=== PATIENT | male | born 1995 | race Caucasian/White ===

== ENCOUNTER 2018-06-04 11:07 | Emergency (ER) | payer SELFPAY ==
[2018-06-04 11:34] VITALS: BMI 23.4
--- NOTE | 2018-06-04 11:48 | PDOC ---
History of Present Illness - General History Source: Patient Exam Limitations: No Limitations - History of Present Illness Initial Comments: 06/04/18 13:04 The patient is a 23 year old male, with no significant past medical history, who presents to the emergency department with nausea, vomiting, diarrhea, since last night. The patient reports he ate steak that he left in his refrigerator for several days, and he vomited shortly after. The patient reports he has had several episodes of vomiting, nonbloody as well as watery diarrhea. The patient notes he is also having diarrhea, nonbloody and nontarry. The patient reports he is not able to keep down anything by mouth. pt endorses intermittent crampy pain with vomiting but non currently. He denies any recent fevers, chills, headache or dizziness. He denies any recent constipation. He denies any recent chest pain or shortness of breath. He denies any recent dysuria, frequency, urgency or hematuria. He denies any recent travel He denies sick contact Allergies: NKA <Evangelina Magallon - Last Filed: 06/04/18 13:48> <Fabricio Madrigal - Last Filed: 06/05/18 10:16> - General Chief Complaint: Vomiting/Diarrhea Stated Complaint: VOMITING/DIARRHEA Time Seen by Provider: 06/04/18 11:40 Past History <Evangelina Magallon - Last Filed: 06/04/18 13:48> - Past Medical History COPD: No - Immunization History Immunization Up to Date: Yes - Suicide/Smoking/Psychosocial Hx Smoking History: Never smoked Hx Alcohol Use: No Drug/Substance Use Hx: No <Fabricio Madrigal - Last Filed: 06/05/18 10:16> - Past Medical History Allergies/Adverse Reactions: Allergies Allergy/AdvReac Type Severity Reaction Status Date / Time No Known Allergies Allergy Verified 06/04/18 11:19 Home Medications: Ambulatory Orders Famotidine [Pepcid] 20 mg PO BID PRN #20 tablet 06/04/18 Mag Hydrox/Aluminum Hyd/Simeth [Maalox Advanced Suspension] 30 ml PO Q6H PRN #1 oral.susp 06/04/18 Ondansetron HCl [Zofran] 4 mg PO Q8H PRN #12 tablet 06/04/18 Ondansetron [Zofran -] 4 mg PO TID PRN #14 tablet 06/04/18 Review of Systems - Review of Systems Able to Perform ROS?: Yes Comments:: 06/04/18 12:45 Constitutional - no reported Fever, Chills, HEENT: no reported vision changes, sore throat Respiratory: no reported cough, sob, hemoptysis Cardiac: no reported chest pain, palpitations, light headedness, leg swelling Abd/GI: +crampy abd pain, nausea, vomiting,diarrhea no reported blood per rectum , melena, : no reported dysuria, frequency, discharge Musculskelatal - no reported back pain, joint swelling skin - no reported bruising, erythema, rash neurological: no reported headache, numbness, focal weakness, tingling, ataxia, hematologic: no reported easy bruising, easy bleeding <Fabricio Mardigal - Last Filed: 06/05/18 10:16> *Physical Exam - Vital Signs Last Vital Signs Temp Pulse Resp BP Pulse Ox 98.2 F 91 H 17 102/62 97 06/04/18 11:20 06/04/18 11:20 06/04/18 11:20 06/04/18 11:20 06/04/18 11:20 <Dizenzo,Evangelina - Last Filed: 06/04/18 13:48> - Vital Signs Last Vital Signs Temp Pulse Resp BP Pulse Ox 98.2 F 91 H 17 102/62 97 06/04/18 11:20 06/04/18 11:20 06/04/18 11:20 06/04/18 11:20 06/04/18 11:20 - Physical Exam Comments: 06/04/18 12:45 GENERAL: The patient is awake, alert, and fully oriented, Nontoxic - in no acute distress. HEAD: Normocephalic, atraumatic. EYES: extraocular movements intact, sclera anicteric, conjunctiva clear. ENT: Normal voice, Moist mucous membranes. NECK: Normal range of motion, supple LUNGS: Breath sounds equal, clear to auscultation bilaterally. No wheezes, no rhonchi, no rales. HEART: Regular rate and rhythm, normal S1 and S2 without murmur, rub or gallop. ABDOMEN: Soft, nontender, normoactive bowel sounds. No guarding, no rebound. . No CVA tenderness EXTREMITIES: Normal range of motion, NEUROLOGICAL: No facial assymetry, Normal speech, moving all 4 ext spontaneoulsy and symemtrically PSYCH: Normal mood, normal affect. SKIN: Warm, Dry, normal turgor, <Fabricio Madrigal - Last Filed: 06/05/18 10:16> Moderate Sedation - Procedure Monitoring Vital Signs: Procedure Monitoring Vital Signs Temperature 98.2 F 06/04/18 11:20 Pulse Rate 91 H 06/04/18 11:20 Respiratory Rate 17 06/04/18 11:20 Blood Pressure 102/62 06/04/18 11:20 O2 Sat by Pulse Oximetry (%) 97 06/04/18 11:20 <Dizenzo,Evangelina - Last Filed: 06/04/18 13:48> - Procedure Monitoring Vital Signs: Procedure Monitoring Vital Signs Temperature 98.2 F 06/04/18 11:20 Pulse Rate 91 H 06/04/18 11:20 Respiratory Rate 17 06/04/18 11:20 Blood Pressure 102/62 06/04/18 11:20 O2 Sat by Pulse Oximetry (%) 97 06/04/18 11:20 <Fabricio Madrigal - Last Filed: 06/05/18 10:16> ED Treatment Course - LABORATORY CBC & Chemistry Diagram: 06/04/18 12:21 06/04/18 12:21 - ADDITIONAL ORDERS Additional order review: Laboratory Results 06/04/18 12:21 Sodium 138 Potassium 4.0 Chloride 101 Carbon Dioxide 27 Anion Gap 10 BUN 19 H Creatinine 1.1 Creat Clearance w eGFR > 60 Random Glucose 107 H Calcium 9.5 Magnesium 2.0 Total Bilirubin 1.4 H AST 17 ALT 18 Alkaline Phosphatase 63 Total Protein 8.2 Albumin 5.0 - Medications Given in the ED: ED Medications Discontinued Medications Generic Name Dose Route Start Last Admin Trade Name Freq PRN Reason Stop Dose Admin Sodium Chloride 1,000 mls @ 1,000 mls/hr 06/04/18 11:53 06/04/18 12:15 Normal Saline - IV 06/04/18 12:52 1,000 mls/hr .Q1H ONE Administration Ondansetron HCl 4 mg 06/04/18 11:53 06/04/18 12:15 Zofran Injection IVPB 06/04/18 11:54 4 mg ONCE ONE Administration <Dizenzo,Evangelina - Last Filed: 06/04/18 13:48> - LABORATORY CBC & Chemistry Diagram: 06/04/18 12:21 06/04/18 12:21 <Fabricio Madrigal - Last Filed: 06/05/18 10:16> Medical Decision Making - Medical Decision Making 06/04/18 11:51 23y M no pmhx presenst with n/v/d since last night. started after he ate some steak renay thas been sittin gin his fridge vomiting x 3 this morning associated with watery non bloody stool since tnight, no hematemes,s unable to tolerate anything by mouth. no known sick contacts or recent travel. no abd surgeries suspect gastroenteritis no foacl abd tenderness to suggest focal peritonitis will treat with fluids, zofran will ck absic labs, ua will reassess A portion of this note was documented by scribe services under my direction. I have reviewed the details of the note, within reason, and agree with the documentation with the following case summary and management plan written by me 06/04/18 17:10 pts labs reviewed noted for leukocytosis pt feeling better clinically, but has occaional R abd pain, awaiting gb US to r/ o cholecystitis tolerating oral intake 06/04/18 17:17 GBUS negative toleraitng oral intake 06/04/18 17:26 pts still has some pain, now complaining of RLQ pain will obtain CT abdomen to r/o appendicitis signed out to evening team to fu with CT <Fabricio Madrigal - Last Filed: 06/05/18 10:16> *DC/Admit/Observation/Transfer - Attestations Scribe Attestion: 06/04/18 13:48 Documentation prepared by Evangelina Magallon, acting as medical safety director for Fabricio Madrigal MD. <Evangelina Magallon - Last Filed: 06/04/18 13:48> <Fabricio Madrigal - Last Filed: 06/05/18 10:16> Diagnosis at time of Disposition: Gastroenteritis - Discharge Dispostion Disposition: HOME Condition at time of disposition: Improved - Prescriptions Prescriptions: Famotidine [Pepcid] 20 mg PO BID PRN #20 tablet PRN Reason: Abdominal Pain Mag Hydrox/Aluminum Hyd/Simeth [Maalox Advanced Suspension] 30 ml PO Q6H PRN #1 oral.susp PRN Reason: Abdominal Pain Ondansetron [Zofran -] 4 mg PO TID PRN #14 tablet PRN Reason: Nausea Ondansetron HCl [Zofran] 4 mg PO Q8H PRN #12 tablet PRN Reason: Nausea - Referrals Referrals: [facility] [place] [facility] [place] [Provider Group] - Patient Instructions Printed Discharge Instructions: DI for Viral Gastroenteritis -- Adult, DI for Abdominal Pain-Adult Additional Instructions: Return to the emergency department immediately with ANY new, persistent or worsening symptoms including worsening abdominal pain, fevers, inability to tolerate oral intake, chest pain, shortness of breath or any other concerns. Clear liquids only for the next 6 hours.. After that if you have had no further vomiting you may have bananas, rice, applesauce, or toast. If no further vomiting for another 8 hours you may have regular food. If you vomit again then nothing to eat or drink for 2 hours. Take one of the ondansatrone as needed for nausea or vomiting then start back with the clear liquids. Return to the emergency department immediately with ANY new, persistent or worsening symptoms. You MUST call and follow up with your doctor tomorrow if not better. Your emergency department visit is not complete without a followup with your doctor for reevaluation. Please make sure your doctor reviews the results of your emergency evaluation Please call back tomorrow for the official read of the CT scan of the abdomen and pelvis at [phone]. Print Language: ZAMBIAN - Post Discharge Activity Forms/Work/School Notes: Back to Work
[2018-06-04] MEDS ORDERED: SODIUM CHLORIDE 1,000 ML IV ONE ×2 (11:53→13:48)
[2018-06-04] MEDS ORDERED: ONDANSETRON 4 MG/2 ML VIAL IVPB ONE (11:53)
[2018-06-04] MEDS ORDERED: ONDANSETRON 4 MG/2 ML VIAL ONE (12:07)
[2018-06-04 12:55] LABS: ALK PHOS 63 U/L (45-117); ANION GAP 10 MMOL/L (8-16); BILIRUBIN,TOTAL 1.4 mg/dL (0.2-1); BLOOD UREA NITROGEN 19 mg/dL (7-18); CALCIUM 9.5 mg/dL (8.5-10.1); CHLORIDE 101 mmol/L (98-107); CO2 27 mmol/L (21-32); CREATININE 1.1 mg/dL (0.55-1.3); GLUCOSE,RANDOM 107 mg/dL (74-106); SGOT/AST 17 U/L (15-37); SGPT/ALT 18 U/L (13-61); SODIUM 138 mmol/L (136-145); TOT PROT 8.2 g/dl (6.4-8.2)
[2018-06-04 13:13] LABS: BASO % 0.2 % (0-2.0); EOS % 0.6 % (0-4.5); HEMATOCRIT 49.7 % (35.4-49); HEMOGLOBIN 17.2 GM/dL (11.7-16.9); LYMPH % 4.6 % (8-40); MCH 30.8 pg (25.7-33.7); MCHC 34.6 g/dl (32.0-35.9); MEAN CELL VOLUME 89.3 fl (80-96); MEAN PLT VOLUME 8.5 fl (7.5-11.1); NEUT % 88.6 % (42.8-82.8); PLATELET COUNT 290 K/MM3 (134-434); RBC 5.57 M/mm3 (4.00-5.60); RDW 14.2 % (11.9-15.9); WHITE BLOOD COUNT 13.2 K/mm3 (4.0-10.0)
[2018-06-04 14:15] LABS: URINE APPEARANCE CLEAR; URINE BILIRUBIN NEGATIVE (<2.0 mg/dL); URINE COLOR YELLOW; URINE GLUCOSE (UA) NEGATIVE (NEGATIVE); URINE KETONE 2+ (NEGATIVE); URINE LEUK ESTERASE NEGATIVE (NEGATIVE); URINE NITRITE NEGATIVE (NEGATIVE); URINE PROTEIN NEGATIVE (NEGATIVE); URINE UROBILINOGEN NEGATIVE mg/dL (0.2-1.0)
--- NOTE | 2018-06-04 20:20 | PDOC ---
*Physical Exam - Vital Signs Last Vital Signs Temp Pulse Resp BP Pulse Ox 98 F 82 20 110/65 100 06/04/18 17:18 06/04/18 17:18 06/04/18 17:18 06/04/18 17:18 06/04/18 17:18 ED Treatment Course - LABORATORY CBC & Chemistry Diagram: 06/04/18 12:21 06/04/18 12:21 - ADDITIONAL ORDERS Additional order review: Laboratory Results 06/04/18 06/04/18 14:05 12:21 Sodium 138 Potassium 4.0 Chloride 101 Carbon Dioxide 27 Anion Gap 10 BUN 19 H Creatinine 1.1 Creat Clearance w eGFR > 60 Random Glucose 107 H Calcium 9.5 Magnesium 2.0 Total Bilirubin 1.4 H AST 17 ALT 18 Alkaline Phosphatase 63 Total Protein 8.2 Albumin 5.0 Urine Color Yellow Urine Appearance Clear Urine pH 6.0 Ur Specific [place] 1.028 Urine Protein Negative Urine Glucose (UA) Negative Urine Ketones 2+ H Urine Blood Negative Urine Nitrite Negative Urine Bilirubin Negative Urine Urobilinogen Negative Ur Leukocyte Esterase Negative 06/04/18 12:21 RBC 5.57 MCV 89.3 MCHC 34.6 RDW 14.2 MPV 8.5 Neutrophils % 88.6 H Lymphocytes % 4.6 L Monocytes % 6.0 Eosinophils % 0.6 Basophils % 0.2 - Medications Given in the ED: ED Medications Discontinued Medications Generic Name Dose Route Start Last Admin Trade Name Freq PRN Reason Stop Dose Admin Sodium Chloride 1,000 mls @ 1,000 mls/hr 06/04/18 11:53 06/04/18 12:15 Normal Saline - IV 06/04/18 12:52 1,000 mls/hr .Q1H ONE Administration Sodium Chloride 1,000 mls @ 1,000 mls/hr 06/04/18 13:48 06/04/18 13:30 Normal Saline - IV 06/04/18 14:47 1,000 mls/hr .Q1H ONE Administration Ondansetron HCl 4 mg 06/04/18 11:53 06/04/18 12:15 Zofran Injection IVPB 06/04/18 11:54 4 mg ONCE ONE Administration Medical Decision Making - Medical Decision Making 06/04/18 20:16 Sign-out received from outgoing Emergency Physician Dr. Madrigal Pt interviewed and examined Ancillary studies reviewed Case discussed in detail with oncoming Emergency Physician including history, physical exam and ancillary studies. I had re-examined the patient. No abdominal pain. CT scan of the abdomen and pelvis (after discussing with radiologist on imaging manufacturing controls engineer), unlikely to be appendicitis. Given no abdominal pain, and pt feels better. I suspect gastroenteritis. Will d/c home with supportive care. I discussed the physical exam findings, ancillary test results and final diagnoses with the patient. I answered all of the patient's questions. The patient was satisfied with the care received and felt comfortable with the discharge plan and treatment plan. The patient will call their primary care physician within 24 hours to arrange follow-up and will return to the Emergency Department with any new, persistant or worsening symptoms. *DC/Admit/Observation/Transfer Diagnosis at time of Disposition: Gastroenteritis - Discharge Dispostion Disposition: HOME Condition at time of disposition: Improved Decision to Admit order: No - Prescriptions Prescriptions: Famotidine [Pepcid] 20 mg PO BID PRN #20 tablet PRN Reason: Abdominal Pain Mag Hydrox/Aluminum Hyd/Simeth [Maalox Advanced Suspension] 30 ml PO Q6H PRN #1 oral.susp PRN Reason: Abdominal Pain Ondansetron [Zofran -] 4 mg PO TID PRN #14 tablet PRN Reason: Nausea Ondansetron HCl [Zofran] 4 mg PO Q8H PRN #12 tablet PRN Reason: Nausea - Referrals [place]: [facility] [place] [facility] [place] [Provider Group] - Patient Instructions Printed Discharge Instructions: DI for Viral Gastroenteritis -- Adult, DI for Abdominal Pain-Adult Additional Instructions: Return to the emergency department immediately with ANY new, persistent or worsening symptoms including worsening abdominal pain, fevers, inability to tolerate oral intake, chest pain, shortness of breath or any other concerns. Clear liquids only for the next 6 hours.. After that if you have had no further vomiting you may have bananas, rice, applesauce, or toast. If no further vomiting for another 8 hours you may have regular food. If you vomit again then nothing to eat or drink for 2 hours. Take one of the ondansatrone as needed for nausea or vomiting then start back with the clear liquids. Return to the emergency department immediately with ANY new, persistent or worsening symptoms. You MUST call and follow up with your doctor tomorrow if not better. Your emergency department visit is not complete without a followup with your doctor for reevaluation. Please make sure your doctor reviews the results of your emergency evaluation Please call back tomorrow for the official read of the CT scan of the abdomen and pelvis at [phone]. Print Language: ITALIAN - Post Discharge Activity Forms/Work/School Notes: Back to Work
[2018-06-04 20:33] VITALS: BP 127/70; PULSE 87; TEMP 98.1
== END 2018-06-04 17:20 | disposition home or self-care (01) ==
LOC: JER 11:07
PROC: 3E0337Z Introduction of Electrolytic and Water Balance Substance into Peripheral Vein, Percutaneous Approach (ICD-10-PCS; principal; 2018-06-04)
PROC: 3E033GC Introduction of Other Therapeutic Substance into Peripheral Vein, Percutaneous Approach (ICD-10-PCS; 2018-06-04)
DX: K52.9 Noninfective gastroenteritis and colitis, unspecified (principal)
CPT/HCPCS: 36415; 74177-TC; 76705-TC; 80053; 81003; 83735; 85025; 99283-25; J7030

== ENCOUNTER 2019-07-02 11:42 | Emergency (ER) | payer OTHER ==
[2019-07-02 11:46] VITALS: BP 108/68; PULSE 75; TEMP 97.3; BMI 23.4
[2019-07-02] MEDS ORDERED: SODIUM CHLORIDE 1,000 ML IV STA (12:01)
[2019-07-02] MEDS ORDERED: ACETAMINOPHEN 1000 MG/100 ML VIAL (NON FORMULARY) IVPB ONE (12:01)
--- NOTE | 2019-07-02 12:05 | PDOC ---
History of Present Illness - General History Source: Patient - History of Present Illness Timing/Duration: reports: constant Quality: reports: moderate Abdominal Pain Onset Location: reports: RLQ <[place] - Last Filed: 07/02/19 14:06> <Fabricio Madrigal - Last Filed: 07/03/19 09:43> - General Chief Complaint: Pain Stated Complaint: ABDOMINAL PAIN Time Seen by Provider: 07/02/19 11:53 Past History - Past Medical History COPD: No - Immunization History Immunization Up to Date: Yes - Psycho Social/Smoking Cessation Hx Smoking History: Never smoked Hx Alcohol Use: No Drug/Substance Use Hx: No <Brittny Stewart - Last Filed: 07/02/19 14:06> <Fabricio Madrigal - Last Filed: 07/03/19 09:43> - Past Medical History Allergies/Adverse Reactions: Allergies Allergy/AdvReac Type Severity Reaction Status Date / Time No Known Allergies Allergy Verified 07/02/19 11:46 Home Medications: Ambulatory Orders Famotidine [Pepcid] 20 mg PO BID PRN #20 tablet 06/04/18 Mag Hydrox/Aluminum Hyd/Simeth [Maalox Advanced Suspension] 30 ml PO Q6H PRN #1 oral.susp 06/04/18 Ondansetron HCl [Zofran] 4 mg PO Q8H PRN #12 tablet 06/04/18 Ondansetron [Zofran -] 4 mg PO TID PRN #14 tablet 06/04/18 Acetaminophen [Tylenol] 650 mg PO Q6H #30 capsule 07/02/19 Ondansetron HCl [Zofran] 4 mg PO Q8H PRN #4 tablet 07/02/19 Review of Systems - Review of Systems Constitutional: No: Chills, Fever ABD/GI: Yes: Diarrhea, Nausea, Vomiting, Abdominal cramping. No: Blood Streaked Bowels, Constipated, Tarry Stools : No: Burning, Dysuria, Testicular Mass, Testicular Swelling, Testicular Pain <Brittny Stewart Last Filed: 07/02/19 14:06> *Physical Exam - Vital Signs Last Vital Signs Temp Pulse Resp BP Pulse Ox 97.3 F L 75 18 108/68 99 07/02/19 11:44 07/02/19 11:44 07/02/19 11:44 07/02/19 11:44 07/02/19 11:44 - Physical Exam General Appearance: Yes: Appropriately Dressed, Mild Distress HEENT: positive: Normal Voice Neck: positive: Supple Respiratory/Chest: negative: Respiratory Distress Gastrointestinal/Abdominal: positive: Normal Bowel Sounds, Tender (to R mid and RLQ, neg murpheys), Soft. negative: Distended, Guarding, Rebound Musculoskeletal: negative: CVA Tenderness Integumentary: positive: Dry, Warm Neurologic: positive: Fully Oriented, Alert, Normal Mood/Affect <Brittny Stewart - Last Filed: 07/02/19 14:06> - Vital Signs Last Vital Signs Temp Pulse Resp BP Pulse Ox 97.3 F L 75 18 108/68 99 07/02/19 11:44 07/02/19 11:44 07/02/19 11:44 07/02/19 11:44 07/02/19 11:44 <Fabricio Madrigal - Last Filed: 07/03/19 09:43> ED Treatment Course - LABORATORY CBC & Chemistry Diagram: 07/02/19 12:00 07/02/19 12:00 - RADIOLOGY Radiology Studies Ordered: Category Date Time Status ABDOMEN & PELVIS CT WITH CONTR [CT] Stat CT Scan 07/02/19 12:02 Ordered <Brittny Stewart - Last Filed: 07/02/19 14:06> - LABORATORY CBC & Chemistry Diagram: 07/02/19 12:00 07/02/19 12:00 - ADDITIONAL ORDERS Additional order review: 07/02/19 12:00 RBC 5.15 MCV 89.2 MCHC 33.7 RDW 14.0 MPV 8.0 Neutrophils % 53.2 D Lymphocytes % 32.2 D Monocytes % 8.7 Eosinophils % 5.3 H D Basophils % 0.6 - Medications Given in the ED: ED Medications Discontinued Medications Generic Name Dose Route Start Last Admin Trade Name Freq PRN Reason Stop Dose Admin Acetaminophen 1,000 mg 07/02/19 12:01 07/02/19 12:30 Ofirmev Injection - IVPB 07/02/19 12:02 1,000 mg ONCE ONE Administration Sodium Chloride 1,000 mls @ 1,000 mls/hr 07/02/19 12:01 07/02/19 12:30 Normal Saline - IV 07/02/19 13:00 1,000 mls/hr ASDIR STA Administration <Fabricio Madrigal - Last Filed: 07/03/19 09:43> Medical Decision Making - Medical Decision Making 07/02/19 12:03 24-year-old male, no significant history, here with abdominal pain with nausea/ vomiting that started at 3 AM today. States he vomited once and has had 5 episodes of non-bloody watery diarrhea. No fever. No unusual food, recent travel, sick contacts or antibiotic use see exam Possible AGE, r/o appy, less likely renal colic, biliary or pancreatitis Exam remarkable for uncomfortable appearance with + ttp R mid and RLQ -pain control -labs -CT 07/02/19 12:06 07/02/19 14:09 Labs within normal limits. CT read as no acute pathology but does show some fecal retention. On reassessment ,patient states symptoms improved with medication w/ no ttp on rpt abd exam. Able to tolerate p.o. here. Will dc with supportive treatment. Will not start on stool softener/laxative at this time given current diarrheal illness. To follow-up with PMD as needed <Brittny Stewart - Last Filed: 07/02/19 14:06> - Medical Decision Making The patient was seen and evaluated in conjunction with JOHNSON Stewart under my direct supervision, ancillary studies we I agree with the plan as outlined by JOHNSON Stewart . <Fabricio Madrigal - Last Filed: 07/03/19 09:43> Discharge - Discharge Information Problems reviewed: Yes <Brittny Stewart - Last Filed: 07/02/19 14:06> <Fabricio Madrigal - Last Filed: 07/03/19 09:43> - Discharge Information Clinical Impression/Diagnosis: Nausea & vomiting Qualifiers: Vomiting type: unspecified Vomiting Intractability: non-intractable Qualified Code(s): R11.2 - Nausea with vomiting, unspecified Diarrhea Qualifiers: Diarrhea type: unspecified type Qualified Code(s): R19.7 - Diarrhea, unspecified Condition: Improved Disposition: HOME - Additional Discharge Information Prescriptions: Acetaminophen [Tylenol] 650 mg PO Q6H #30 capsule Ondansetron HCl [Zofran] 4 mg PO Q8H PRN #4 tablet PRN Reason: Nausea And/Or Vomiting - Patient Discharge Instructions Patient Printed Discharge Instructions: Viral Gastroenteritis Additional Instructions: Your symptoms are most likely due to viral causes and is usually self-limited as discussed today You were prescribed a few doses of antinausea medication and pain medication until your symptoms resolve Your blood work and CAT scan did not show any serious condition at this time Follow-up with your PMD as needed - Post Discharge Activity Work/Back to School Note: Back to Work
[2019-07-02] MEDS ORDERED: ACETAMINOPHEN INJECTION 100 ML IVPB ONE (12:07)
[2019-07-02 12:54] LABS: BASO % 0.6 % (0-2.0); EOS % 5.3 % (0-4.5); HEMATOCRIT 45.9 % (35.4-49); HEMOGLOBIN 15.5 GM/dL (11.7-16.9); LYMPH % 32.2 % (8-40); MCH 30.1 pg (25.7-33.7); MCHC 33.7 g/dl (32.0-35.9); MEAN CELL VOLUME 89.2 fl (80-96); MONO % 8.7 % (3.8-10.2); NEUT % 53.2 % (42.8-82.8); PLATELET COUNT 286 K/MM3 (134-434); RBC 5.15 M/mm3 (4.00-5.60); WHITE BLOOD COUNT 4.8 K/mm3 (4.0-10.0)
[2019-07-02 13:17] LABS: ALBUMIN 4.2 g/dl (3.4-5.0); BILIRUBIN,TOTAL 1.1 mg/dL (0.2-1); BLOOD UREA NITROGEN 13.4 mg/dL (7-18); CALCIUM 9.6 mg/dL (8.5-10.1); TOT PROT 7.2 g/dl (6.4-8.2)
== END 2019-07-02 14:15 | disposition home or self-care (01) ==
LOC: JER 11:42
PROC: 3E033NZ Introduction of Analgesics, Hypnotics, Sedatives into Peripheral Vein, Percutaneous Approach (ICD-10-PCS; principal; 2019-07-02)
DX: A08.4 Viral intestinal infection, unspecified (principal); B97.89 Other viral agents as the cause of diseases classified elsewhere
CPT/HCPCS: 36415; 74177-TC; 80053; 83690; 85025; 96374; 99285-25; J0131; J7030; Q9967

== ENCOUNTER 2020-10-28 15:31 | Emergency (ER) | payer OTHER ==
[2020-10-28 15:48] VITALS: BP 108/68; PULSE 87; BMI 20.9
[2020-10-28] MEDS ORDERED: IBUPROFEN 600 MG TABLET (FP) PO ONE ×2 (15:49→15:56)
== END 2020-10-28 17:10 | disposition home or self-care (01) ==
LOC: JERFT 15:31
PROC: 2W3DX1Z Immobilization of Left Lower Arm using Splint (ICD-10-PCS; principal; 2020-10-28)
DX: S52.532A Colles' fracture of left radius, initial encounter for closed fracture (principal)
CPT/HCPCS: 73110-TC-LT-FY; 73130-TC-LT-FY; 99283-25

== ENCOUNTER 2021-06-08 18:48 | Emergency (ER) | payer OTHER ==
[2021-06-08 19:00] VITALS: BP 114/69; TEMP 101.5; BMI 20.1
[2021-06-08] MEDS ORDERED: ACETAMINOPHEN 500 MG TABLET (FP) PO ONE (19:28)
[2021-06-08] MEDS ORDERED: ACETAMINOPHEN 500 MG TABLET (FP) ONE (19:29)
[2021-06-08] MEDS ORDERED: DEXAMETHASONE LIQUID 0.5 MG/5 ML PO ONE (19:50)
[2021-06-08 20:12] VITALS: PULSE 99
[2021-06-08] MEDS ORDERED: DEXAMETHASONE SOD PHOSPHATE 10 MG/1 ML VIAL ONE (20:22)
== END 2021-06-08 20:32 | disposition home or self-care (01) ==
LOC: JER 18:48
DX: J03.90 Acute tonsillitis, unspecified (principal); J02.9 Acute pharyngitis, unspecified; L04.9 Acute lymphadenitis, unspecified
CPT/HCPCS: 87651; 87804; 99283-25; C9803; U0003; U0005

== ENCOUNTER 2021-08-28 13:34 | Emergency (ER) | payer OTHER ==
[2021-08-28 13:38] VITALS: BP 102/69; PULSE 70; TEMP 97.8; BMI 20.1
== END 2021-08-28 14:36 | disposition home or self-care (01) ==
LOC: JERFT 13:34
DX: M65.4 Radial styloid tenosynovitis [de Quervain] (principal)
CPT/HCPCS: 73110-TC-LT-FY; 73130-TC-LT-FY; 99283-25